=== PATIENT | female | born 1970 | race Caucasian/White ===

== ENCOUNTER → 2024-12-05 | Outpatient (CLI) | payer MEDICARE, OTHER ==
--- NOTE | 2024-12-11 08:39 | MM ---
Reason for Exam: Screening (asymptomatic). Last mammogram was performed 12 year(s) and 3 month(s) ago. Patient History: Menarche at age 12. First Full-Term at age 35. Late child-bearing (after 30). Maternal grandmother had breast cancer at or over age 50. Last menstrual period: Risk Values: Zeina 5 year model risk: 1.6%. NCI Lifetime model risk: 11.4%. Prior Study Comparison: 08/29/2012 Bilateral Screening Mammogram, [place]. Tissue Density: There are scattered areas of fibroglandular density. Findings: Analyzed By CAD. There is no suspicious group of microcalcifications or new suspicious mass in either breast. Overall Assessment: Negative, BI-RAD 1 Management: Screening Mammogram of both breasts in 1 year. . Patient should continue monthly self-breast exams. A clinical breast exam by your physician is recommended on an annual basis. This exam should not preclude additional follow-up of suspicious palpable abnormalities. Note on Zeina scores and lifetime risk: 1. A Zeina score greater than 3% is considered moderate risk. If this is the case, consider specialist referral to assess eligibility for a risk reducing agent. 2. If overall lifetime risk for the development of breast cancer is 20% or higher, the patient may qualify for future screening with alternating mammogram and breast MRI. [facility], , 12/11/2024 8:36 AM. Electronically signed and approved by: Jesse Harkins M.D. Radiologis
== END | disposition home or self-care (01) ==
LOC: RADMAMWWP 10:00
PROVIDERS: ATTEND Family Medicine
DX: Z12.31 Encounter for screening mammogram for malignant neoplasm of breast (principal); R92.323 Mammographic fibroglandular density, bilateral breasts; Z80.3 Family history of malignant neoplasm of breast
CPT/HCPCS: 77063; 77067